=== PATIENT | male | born 1980 | race Caucasian/White ===

== ENCOUNTER → 2021-07-03 | Outpatient (CLI) | payer OTHER ==
--- NOTE | 2021-07-03 15:16 | RAD ---
EXAMINATION: XR SHOULDER_LEFT 2+ VIEWS CLINICAL HISTORY: Left shoulder pain TECHNIQUE: XR SHOULDER_LEFT 2+ VIEWS COMPARISON: None FINDINGS/ IMPRESSION: Mild glenohumeral and acromioclavicular joint space narrowing. No acute fracture. Electronically signed by: oJhn Ndiaye DO (07/03/2021 3:13 PM) [id number]
== END ==
LOC: RAD 10:22
PROVIDERS: ATTEND Orthopaedic Surgery
DX: M25.512 Pain in left shoulder (principal)
CPT/HCPCS: 73030